=== PATIENT | male | born 1975 | race Caucasian/White ===

== ENCOUNTER 2019-04-13 21:46 | Emergency (ER) | payer OTHER ==
[2019-04-13] MEDS ORDERED: Adacel (T-DAP) 0.5 ML SYRINGE ONE (22:23)
[2019-04-13] MEDS ORDERED: Lidocaine 1% (PF) 30 ML VIAL ONE (22:30)
[2019-04-13] MEDS ORDERED: Bacitracin 1 PK ONE (23:11)
== END 2019-04-13 23:35 | disposition home or self-care (01) ==
LOC: ERS 21:46
DX: S61.215A Laceration without foreign body of left ring finger without damage to nail, initial encounter (principal); S61.216A Laceration without foreign body of right little finger without damage to nail, initial encounter; F17.210 Nicotine dependence, cigarettes, uncomplicated; Z23 Encounter for immunization; W26.9XXA Contact with unspecified sharp object(s), initial encounter; Y92.009 Unspecified place in unspecified non-institutional (private) residence as the place of occurrence of the external cause
CPT/HCPCS: 12001; 90471; 90715; J2001

== ENCOUNTER 2019-04-26 10:23 | Emergency (ER) | payer OTHER | END 2019-04-26 11:07 | disposition home or self-care (01) | LOC: ERS 10:23 | DX: S61.012D Laceration without foreign body of left thumb without damage to nail, subsequent encounter (principal); F17.210 Nicotine dependence, cigarettes, uncomplicated; X58.XXXD Exposure to other specified factors, subsequent encounter ==